=== PATIENT | female | born 1970 | race Caucasian/White ===

== ENCOUNTER 2017-02-03 14:30 | Outpatient (RCR) | payer OTHER ==
[2017-01-19 15:31] VITALS: BP 137/67; PULSE 80; TEMP 99
[2017-01-24 13:58] VITALS: BP 150/71; PULSE 75; TEMP 98.5
[2017-01-28 14:13] VITALS: BP 158/77; PULSE 97; TEMP 98.4
[~2017-02-03] VITALS: Ht 152.4 cm; Wt 65.9 kg
[~2017-02-03 14:30] MED LIST: ALLEGRA 180MG180 MG PO; PRILOSEC10 MG PO; XANAX .25M0.25 MG/TA PO
[2017-02-03 15:00] VITALS: BP 146/81; PULSE 79; TEMP 98.4
== END 2017-02-03 16:00 | disposition home or self-care (01) ==
LOC: EUO 14:30
DX: D50.9 Iron deficiency anemia, unspecified (principal)
CPT/HCPCS: J2916

== ENCOUNTER 2021-04-20 16:24 | Emergency (ER) | payer BC ==
[~2021-04-20] VITALS: Ht 152.4 cm; Wt 63.5 kg
[2021-04-20 16:49] VITALS: TEMP 98.2
[2021-04-20 18:47] LABS: ALANINE AMINOTRANSFERASE 132 U/L (4-34); ALBUMIN 3.6 gm/dL (3.5-5.0); ALKALINE PHOSPHATASE 256 U/L (50-136); ANION GAP 7 mmol/L (7-16); AST,SGOT 369 U/L (15-37); BILIRUBIN,TOTAL 1.6 mg/dL (0.0-1.0); CALCIUM 9.1 mg/dL (8.4-10.2); CARBON DIOXIDE 35 mmol/L (22-30); CHLORIDE 91 mmol/L (98-107); CREATININE, serum 0.39 (0.52-1.25); GLUCOSE 140 mg/dL (74-106); LIPASE 880 U/L (23-300); SODIUM 133 mmol/L (137-145); TOTAL PROTEIN 6.6 gm/dL (6.4-8.2)
[2021-04-20 19:03] LABS: BLOOD UREA NITROGEN < 2 mg/dL (7-17)
[2021-04-20 19:04] LABS: POTASSIUM 2.6 mmol/L (3.4-5.0)
[2021-04-20 19:11] LABS: BASO # 0.1 (0.0-0.2); BASO % 0.9 % (0.0-2.0); EOS # 0.1 (0.0-0.7); EOS % 0.7 % (0-4.0); GRAN # 4.7 (1.4-6.5); GRAN % 70.4 % (42.2-75.2); HEMOGLOBIN 12.6 g/dl (12.5-16.0); LYMPH # 1.2 (1.2-3.4); LYMPH % 18.4 % (20.0-51.0); MEAN CELL VOLUME 116 fl (80.0-100.0); MEAN CORPUSCULAR HEMOGLOBIN 44 pg (27.0-31.0); MEAN CORPUSCULAR HGB CONC 38 g/dl (33.0-37.0); MEAN PLATELET VOLUME 10.1 fl (7.4-10.4); MONO # 0.6 (0.1-0.6); MONO % 8.3 % (1.7-9.3); PLATELET COUNT 168 K/mm3 (130-400); RED BLOOD COUNT 2.86 M/mm3 (4.10-5.30); REDCELL DISTRIBUTION WIDTH-CV 12.7 % (11.5-14.5)
[2021-04-20 19:23] LABS: HEMATOCRIT 33.2 % (37.0-47.0)
[2021-04-20] MEDS ORDERED: ZOFRAN ODT4 MG PO (22:37)
[2021-04-20] MEDS ORDERED: KLOR-CON20 MEQ PO (22:37)
[2021-04-20] MEDS ORDERED: NORCO 325 MG-51 TAB PO (22:37)
[2021-04-20 22:50] VITALS: BP 146/70; PULSE 76
== END 2021-04-20 22:50 | disposition home or self-care (01) ==
LOC: COL.ER 16:24
PROVIDERS: Personal Emergency Response Attendant
DX: K85.90 Acute pancreatitis without necrosis or infection, unspecified (principal); E87.6 Hypokalemia; F17.200 Nicotine dependence, unspecified, uncomplicated; Z90.49 Acquired absence of other specified parts of digestive tract; Z98.84 Bariatric surgery status; Z88.1 Allergy status to other antibiotic agents
CPT/HCPCS: C9113; J2270; J2405; J7030; Q9967